=== PATIENT | female | born 1940 | race Caucasian/White ===

== ENCOUNTER → 2016-12-06 | Outpatient (CLI) | payer OTHER ==
[~2016-12-06] MED LIST: ASPIRIN325 PO; IBUPROFEN 200200 M1 PO; MOBIC15 MG PO; NORCO 5-325 TA1 EACH PO; PROAIR RESPICL90 MCG IH
[2016-12-06 09:43] LABS: CREATININE 0.7 mg/dL (0.6-1.0)
== END ==
LOC: CAT 08:57
PROVIDERS: Internal Medicine Gastroenterology
DX: K57.92 Diverticulitis of intestine, part unspecified, without perforation or abscess without bleeding (principal); R10.32 Left lower quadrant pain

== ENCOUNTER 2018-10-27 11:54 | Emergency (ER) | payer OTHER ==
[~2018-10-27] VITALS: Ht 154.9 cm; Wt 62.1 kg
[2018-10-27] MEDS ORDERED: NORVASC5 MG PO (12:09)
[2018-10-27] MEDS ORDERED: LIPITOR80 MG PO (12:10)
[2018-10-27] MEDS ORDERED: MOBIC7.5 MG PO ×2 (13:12→13:16)
[2018-10-27 14:02] VITALS: BP 165/60
== END 2018-10-27 13:30 | disposition home or self-care (01) ==
LOC: ER 11:54
DX: S93.491A Sprain of other ligament of right ankle, initial encounter (principal); M19.071 Primary osteoarthritis, right ankle and foot; J45.909 Unspecified asthma, uncomplicated; E78.00 Pure hypercholesterolemia, unspecified; Z85.3 Personal history of malignant neoplasm of breast; Z90.13 Acquired absence of bilateral breasts and nipples; Z87.891 Personal history of nicotine dependence; X58.XXXA Exposure to other specified factors, initial encounter; Y93.89 Activity, other specified; Y92.89 Other specified places as the place of occurrence of the external cause; Y99.8 Other external cause status